=== PATIENT | male | born 1960 | race Caucasian/White ===

== ENCOUNTER 2016-11-18 19:06 | Inpatient (IN) | payer MEDICARE, OTHER ==
[~2016-11-18] VITALS: Ht 172.7 cm; Wt 80.4 kg
[~2016-11-18 19:06] MED LIST: ACET-1757 PO; ACET325T14 PO; ACID1TAB3 PO; ALBU2.5V NEB; ASPI-496 PO; ASPI-515; ASPI-515 PO; ATOR20TA; ATOR20TA PO; BACL-19 PO; BISA10SU2 PR; CHLO25TA4 PO; DOCU50LI24 PO; ESOM40VI IVF; HYDR-3138 PO; IPRA3AMP NPPB; LACT20SO2 NG; LISI20TA; MAGN400T7 PO; METR500T PO; MORP5SYR IV; MULT-658 PO; OMEP40CA3 PO; ONDA4SOL2 IV; PANT40GR PEG; RISP0.253 PO; SULF200O NG; TEMA15CA6 PO; [UNRECOGNIZED DRUG - CODE] IV; [UNRECOGNIZED DRUG - OTHER] OP; [UNRECOGNIZED DRUG - OTHER] PO; erythromycin; erythromycin OP
[2016-11-18] MEDS ORDERED: SODIUM CHLORIDE FLUSH 10ML SYR IVF ONE (19:30)
[2016-11-18] MEDS ORDERED: SODIUM CHLORIDE 0.9% 1,000ML IVBOLUS ONE (19:30)
[2016-11-18 20:08] LABS: BLOOD UREA NITROGEN 18 mg/dL (7-18)
[2016-11-18 20:12] LABS: ASPARTATE AMINO TRANSFERASE 15 U/L (15-37)
[2016-11-18] MEDS ORDERED: ASPI81TA50 PO (20:32)
[2016-11-18 20:38] LABS: DAU SCREEN DISCLAIMER
[2016-11-18] MEDS ORDERED: SODIUM CHLORIDE FLUSH 10ML SYR IVF PRN (21:00)
[2016-11-18] MEDS ORDERED: DOCUSATE 100 MG CAPSULE PO PRN (22:00)
[2016-11-18] MEDS ORDERED: BISACODYL 10 MG SUPP PR PRN (22:00)
[2016-11-18] MEDS ORDERED: LABETALOL 5MG/ML, 20ML IV PRN (22:00)
[2016-11-18] MEDS ORDERED: POLYETHYLENE GLYCOL 17 GM PACKET PO PRN (22:00)
[2016-11-18] MEDS ORDERED: ONDANSETRON 2MG/ML, 2ML IVP PRN (22:00)
[2016-11-18] MEDS ORDERED: ENALAPRILAT 1.25 MG/ML, 2ML IVPush PRN (22:00)
[2016-11-19 03:12] VITALS: BP 144/89
[2016-11-19 03:43] VITALS: BP 143/80
[2016-11-19 07:45] VITALS: BP 142/92
[2016-11-19 08:34] LABS: HEMOGLOBIN 19.2 g/dL (13.7-18.0)
[2016-11-19 08:44] LABS: ASPARTATE AMINO TRANSFERASE 13 U/L (15-37); BLOOD UREA NITROGEN 15 mg/dL (7-18)
[2016-11-19] MEDS: ACETAMINOPHEN 325 MG TABLET PO PRN ×2 (08:53→13:18)
[2016-11-19 12:49] VITALS: BP 142/94
[2016-11-19] MEDS ORDERED: OXYcodone IR 5MG TABLET PO PRN (16:30)
[2016-11-19] MEDS: ERYTHROMYCIN OPHTH 0.5%, 1GM RIGHTEYE SCH ×2 (16:31→20:56)
[2016-11-19 20:00] VITALS: BP 145/91
[2016-11-19] MEDS: ATORVASTATIN 20 MG TABLET PO SCH (20:52)
[2016-11-19] MEDS: LEVETIRACETAM 500 MG TABLET PO SCH (20:52)
[2016-11-20 01:51] VITALS: BP 142/92
[2016-11-20] MEDS: ERYTHROMYCIN OPHTH 0.5%, 1GM RIGHTEYE SCH ×4 (06:00→21:32)
[2016-11-20 06:58] VITALS: BP 114/71
[2016-11-20] MEDS: LEVETIRACETAM 500 MG TABLET PO SCH (09:00)
[2016-11-20] MEDS: SODIUM CHLORIDE 0.9% 1,000 ML IV SCH (11:00)
[2016-11-20 13:33] VITALS: BP 118/82
[2016-11-20] MEDS: ACETAMINOPHEN 325 MG TABLET PO PRN (14:54)
[2016-11-20 19:09] VITALS: BP 119/73
[2016-11-20] MEDS: ATORVASTATIN 20 MG TABLET PO SCH (21:32)
[2016-11-21] MEDS: SODIUM CHLORIDE 0.9% 1,000 ML IV SCH ×2 (03:01→13:31)
[2016-11-21 03:41] VITALS: BP 140/80
[2016-11-21] MEDS: ERYTHROMYCIN OPHTH 0.5%, 1GM RIGHTEYE SCH ×4 (06:00→22:21)
[2016-11-21 06:35] LABS: ASPARTATE AMINO TRANSFERASE 11 U/L (15-37); BLOOD UREA NITROGEN 21 mg/dL (7-18)
[2016-11-21 06:38] LABS: HEMOGLOBIN 18.8 g/dL (13.7-18.0)
[2016-11-21 07:10] VITALS: BP 95/65
[2016-11-21] MEDS: ACETAMINOPHEN 325 MG TABLET PO PRN (14:55)
[2016-11-21 15:20] VITALS: BP 115/76
[2016-11-21 18:54] VITALS: BP 119/75
[2016-11-21] MEDS: ATORVASTATIN 20 MG TABLET PO SCH (22:20)
[2016-11-22] MEDS: SODIUM CHLORIDE 0.9% 1,000 ML IV SCH (02:42)
[2016-11-22 02:47] VITALS: BP 121/70
[2016-11-22] MEDS: ERYTHROMYCIN OPHTH 0.5%, 1GM RIGHTEYE SCH ×2 (06:00→10:13)
[2016-11-22 07:33] VITALS: BP 122/85
[2016-11-22 13:30] VITALS: BP 116/76
== END 2016-11-22 17:40 | disposition home or self-care (01) | DRG 64 ==
LOC: ED 21:12 → EDIP 21:15 → 4WST 22:42
PROVIDERS: ADMIT Internal Medicine; ATTEND Internal Medicine
PROC: 0T9B70Z Drainage of Bladder with Drainage Device, Via Natural or Artificial Opening (ICD-10-PCS; principal; 2016-11-18)
DX: I62.00 Nontraumatic subdural hemorrhage, unspecified (principal); E43 Unspecified severe protein-calorie malnutrition; G91.9 Hydrocephalus, unspecified; R47.01 Aphasia; R27.0 Ataxia, unspecified; H91.93 Unspecified hearing loss, bilateral; J40 Bronchitis, not specified as acute or chronic; E78.5 Hyperlipidemia, unspecified; R13.10 Dysphagia, unspecified; D75.1 Secondary polycythemia; R47.02 Dysphasia; W18.30XA Fall on same level, unspecified, initial encounter; Z66 Do not resuscitate; R53.81 Other malaise; H91.91 Unspecified hearing loss, right ear; H54.11 Blindness, right eye, low vision left eye; Z96.89 Presence of other specified functional implants; F07.81 Postconcussional syndrome; I11.9 Hypertensive heart disease without heart failure; K80.20 Calculus of gallbladder without cholecystitis without obstruction; Z86.73 Personal history of transient ischemic attack (TIA), and cerebral infarction without residual deficits; Z98.2 Presence of cerebrospinal fluid drainage device; Q85.01 Neurofibromatosis, type 1; Z86.19 Personal history of other infectious and parasitic diseases; Z87.01 Personal history of pneumonia (recurrent); Z93.0 Tracheostomy status; Z87.891 Personal history of nicotine dependence; Z93.1 Gastrostomy status; Z91.81 History of falling; Z68.27 Body mass index [BMI] 27.0-27.9, adult
CPT/HCPCS: 36415; 70450; 71010; 71250; 76700; 80047; 80053; 80307; 81003; 83735; 84100; 84145; 85025; 85610; 85730; 93005; 99285; 92523-GN; J7030

== ENCOUNTER 2016-12-12 11:13 | Inpatient (IN) | payer MEDICARE ==
[~2016-12-12] VITALS: Ht 172.7 cm; Wt 70.6 kg
[~2016-12-12 11:13] MED LIST changes: +ASPI81TA50 PO; +LACT20SO13 NG; -LACT20SO2 NG
[2016-12-12] MEDS ORDERED: ONDANSETRON 2MG/ML, 2ML IVPush ONE ×2 (13:00→16:00)
[2016-12-12] MEDS ORDERED: SODIUM CHLORIDE FLUSH 10ML SYR IVF ONE (13:00)
[2016-12-12] MEDS ORDERED: SODIUM CHLORIDE 0.9% 1,000ML IVBOLUS ONE ×2 (13:00→15:30)
[2016-12-12] MEDS ORDERED: ONDANSETRON 2MG/ML, 2ML ONE ×2 (13:17→16:17)
[2016-12-12 13:23] LABS: ASPARTATE AMINO TRANSFERASE 13 U/L (15-37); BLOOD UREA NITROGEN 37 mg/dL (7-18)
[2016-12-12 14:38] LABS: BLOOD UREA NITROGEN 36 mg/dL (7-18)
[2016-12-12 14:43] LABS: ASPARTATE AMINO TRANSFERASE 13 U/L (15-37)
[2016-12-12] MEDS ORDERED: ACETAMINOPHEN 325 MG TABLET PO PRN (18:00)
[2016-12-12] MEDS ORDERED: ONDANSETRON 2MG/ML, 2ML IVP PRN (18:00)
[2016-12-12] MEDS ORDERED: HYDROcodone/APAP 5/325 TABLET PO PRN (18:00)
[2016-12-12] MEDS ORDERED: PROMETHAZINE 25 MG/ML, 1ML IM PRN (18:00)
[2016-12-12 21:24] VITALS: BP 142/95
[2016-12-12 22:20] VITALS: BP 124/76
[2016-12-12] MEDS: SODIUM CHLORIDE 0.9% 1,000 ML IV SCH (23:00)
[2016-12-13 01:41] VITALS: BP 126/99
[2016-12-13] MEDS: SODIUM CHLORIDE 0.9% 1,000 ML IV SCH ×3 (05:29→21:37)
[2016-12-13 06:41] VITALS: BP 116/80
[2016-12-13 06:49] LABS: ASPARTATE AMINO TRANSFERASE 12 U/L (15-37); BLOOD UREA NITROGEN 48 mg/dL (7-18)
[2016-12-13 13:18] VITALS: BP 133/84
[2016-12-13 19:43] VITALS: BP 117/74
[2016-12-14] VITALS (12 sets, daily range): BP systolic 111–132; BP diastolic 69–86
[2016-12-14] MEDS: SODIUM CHLORIDE 0.9% 1,000 ML IV SCH ×3 (03:51→19:54)
[2016-12-14 05:49] LABS: BLOOD UREA NITROGEN 37 mg/dL (7-18)
[2016-12-14 05:52] LABS: ASPARTATE AMINO TRANSFERASE 10 U/L (15-37)
[2016-12-14] MEDS ORDERED: MIDAZOLAM 1 MG/ML, 2ML ONE ×2 (08:35→08:36)
[2016-12-14] MEDS ORDERED: KETAMINE 10 MG/ML, 20ML ONE (08:35)
[2016-12-14] MEDS ORDERED: FENTANYL PF 100 MCG/2ML IV PRN (10:30)
[2016-12-14] MEDS ORDERED: ONDANSETRON 2MG/ML, 2ML IVPush PRN (10:30)
[2016-12-14] MEDS ORDERED: OXYcodone 5 MG/5 ML ORAL.SOL UDC PO PRN (10:30)
[2016-12-14] MEDS ORDERED: ALBUTEROL/IPRATROPIUM 2.5MG/0.5MG, 3 ML NPPB PRN (10:30)
[2016-12-14] MEDS ORDERED: hydrALAzine 20 MG/ML, 1ML IV PRN (10:30)
[2016-12-14] MEDS ORDERED: HYDROmorphone 1 MG/ML, 1ML IV PRN (10:30)
[2016-12-14] MEDS ORDERED: ACETAMINOPHEN 325 MG TABLET PO PRN (10:30)
[2016-12-14] MEDS ORDERED: ALBUTEROL SULFATE 2.5 MG/3 ML NPPB PRN (10:30)
[2016-12-14] MEDS ORDERED: LABETALOL 5MG/ML, 20ML IV PRN (10:30)
[2016-12-14] MEDS ORDERED: ACETAMINOPHEN 650 MG SUPP PR PRN (23:00)
[2016-12-15 01:45] VITALS: BP 133/78
[2016-12-15] MEDS: SODIUM CHLORIDE 0.9% 1,000 ML IV SCH ×3 (02:21→17:13)
[2016-12-15 06:20] LABS: BLOOD UREA NITROGEN 26 mg/dL (7-18)
[2016-12-15 07:39] VITALS: BP 129/75
[2016-12-15] MEDS: MORPHINE SULFATE 4 MG/ML, 1ML IVPush PRN (11:38)
[2016-12-15 13:44] VITALS: BP 144/89
[2016-12-15 20:34] VITALS: BP 135/80
[2016-12-16] MEDS: SODIUM CHLORIDE 0.9% 1,000 ML IV SCH ×2 (00:49→10:52)
[2016-12-16 01:55] VITALS: BP 138/73
[2016-12-16 06:36] VITALS: BP 122/76
[2016-12-16 07:14] LABS: BLOOD UREA NITROGEN 20 mg/dL (7-18)
[2016-12-16] MEDS: MORPHINE SULFATE 4 MG/ML, 1ML IVPush PRN (11:18)
[2016-12-16 14:16] VITALS: BP 128/75
[2016-12-16] MEDS ORDERED: TPN PER PHARMACY MC PRN (16:00)
[2016-12-16] MEDS ORDERED: SODIUM CHLORIDE 0.9% 1,000 ML IV SCH ×2 (17:00)
[2016-12-16] MEDS ORDERED: [UNRECOGNIZED DRUG - OTHER] IV SCH (17:00)
[2016-12-16] MEDS ORDERED: DEXTROSE 70% IV SCH ×2 (17:00)
[2016-12-16] MEDS ORDERED: DEXTROSE 10% 500 ML IV PRN (17:00)
[2016-12-16] MEDS ORDERED: AMINO ACID 10% IV SCH ×2 (17:00)
[2016-12-16] MEDS ORDERED: [UNRECOGNIZED DRUG - OTHER] IV SCH (17:00)
[2016-12-16] MEDS ORDERED: FAT EMULSIONS IV SCH ×2 (17:00)
[2016-12-16] MEDS ORDERED: DEXTROSE 50%, 50ML SYRINGE IVPush PRN (17:00)
[2016-12-16] MEDS: FILTER, DISP 1.2 MICRON FOR TPN/PVN IV PRN (18:24)
[2016-12-16 20:00] VITALS: BP 135/78
[2016-12-16] MEDS: INSULIN REGULAR LOW DOSE Q6H X 48HRS SQ-INSULIN SCH (23:00)
[2016-12-17 00:38] VITALS: BP 134/86
[2016-12-17] MEDS: INSULIN REGULAR LOW DOSE Q6H X 48HRS SQ-INSULIN SCH ×4 (05:00→22:57)
[2016-12-17 05:55] LABS: ASPARTATE AMINO TRANSFERASE 13 U/L (15-37); BLOOD UREA NITROGEN 17 mg/dL (7-18)
[2016-12-17 06:36] VITALS: BP 130/83
[2016-12-17] MEDS ORDERED: SODIUM CHLORIDE 0.9% 1,000 ML IV SCH (08:26)
[2016-12-17] MEDS ORDERED: MAGNESIUM SULFATE PMX 2GM/50ML 50 ML IVPB ONE (08:30)
[2016-12-17] MEDS ORDERED: POTASSIUM PHOSPHATE 22 MEQ in SODIUM CHLORIDE 0.9% 500 ML IV ONE (09:00)
[2016-12-17 12:45] VITALS: BP 125/81
[2016-12-17] MEDS ORDERED: FAT EMULSIONS IV SCH (17:00)
[2016-12-17] MEDS ORDERED: DEXTROSE 70% IV SCH (17:00)
[2016-12-17] MEDS ORDERED: AMINO ACID 10% IV SCH (17:00)
[2016-12-17] MEDS ORDERED: [UNRECOGNIZED DRUG - OTHER] IV SCH (17:00)
[2016-12-17] MEDS: SODIUM CHLORIDE 0.9% 1,000 ML IV SCH (18:16)
[2016-12-17 20:00] VITALS: BP 123/76
[2016-12-17] MEDS ORDERED: SODIUM PHOSPHATE 20 MMOL in SODIUM CHLORIDE 0.9% 500 ML IV ONE (20:00)
[2016-12-18 02:00] VITALS: BP 130/87
[2016-12-18 04:49] LABS: BLOOD UREA NITROGEN 13 mg/dL (7-18)
[2016-12-18] MEDS: INSULIN REGULAR LOW DOSE Q6H X 48HRS SQ-INSULIN SCH ×3 (05:00→17:00)
[2016-12-18 09:00] VITALS: BP 140/82
[2016-12-18] MEDS: SODIUM CHLORIDE 0.9% 1,000 ML IV SCH (12:15)
[2016-12-18 14:30] VITALS: BP 131/88
[2016-12-18] MEDS ORDERED: FAT EMULSIONS IV SCH (17:00)
[2016-12-18] MEDS ORDERED: [UNRECOGNIZED DRUG - OTHER] IV SCH (17:00)
[2016-12-18] MEDS ORDERED: AMINO ACID 10% IV SCH (17:00)
[2016-12-18] MEDS ORDERED: DEXTROSE 70% IV SCH (17:00)
[2016-12-18] MEDS: MORPHINE SULFATE 4 MG/ML, 1ML IVPush PRN ×2 (17:06→22:39)
[2016-12-18] MEDS: FILTER, DISP 1.2 MICRON FOR TPN/PVN IV PRN (17:07)
[2016-12-18 20:00] VITALS: BP 128/84
[2016-12-19] MEDS: SODIUM CHLORIDE 0.9% 1,000 ML IV SCH ×2 (01:57→17:05)
[2016-12-19 03:00] VITALS: BP 115/74
[2016-12-19] MEDS: INSULIN REGULAR LOW DOSE QDAY SQ-INSULIN SCH (05:00)
[2016-12-19 05:15] LABS: BLOOD UREA NITROGEN 14 mg/dL (7-18)
[2016-12-19 05:20] LABS: ASPARTATE AMINO TRANSFERASE 14 U/L (15-37)
[2016-12-19 07:26] VITALS: BP 114/72
[2016-12-19 12:30] VITALS: BP 120/76
[2016-12-19] MEDS ORDERED: [UNRECOGNIZED DRUG - OTHER] IV SCH (17:00)
[2016-12-19] MEDS ORDERED: FAT EMULSIONS IV SCH (17:00)
[2016-12-19] MEDS ORDERED: DEXTROSE 70% IV SCH (17:00)
[2016-12-19] MEDS ORDERED: AMINO ACID 10% IV SCH (17:00)
[2016-12-19] MEDS: FILTER, DISP 1.2 MICRON FOR TPN/PVN IV PRN (17:04)
[2016-12-19 20:59] VITALS: BP 118/77
[2016-12-20 02:55] VITALS: BP 94/61
[2016-12-20 04:50] VITALS: BP 102/63
[2016-12-20] MEDS: INSULIN REGULAR LOW DOSE QDAY SQ-INSULIN SCH (05:37)
[2016-12-20 06:13] LABS: BLOOD UREA NITROGEN 17 mg/dL (7-18)
[2016-12-20 06:45] VITALS: BP 101/66
[2016-12-20] MEDS: SODIUM CHLORIDE 0.9% 1,000 ML IV SCH (08:51)
[2016-12-20] MEDS: MORPHINE SULFATE 4 MG/ML, 1ML IVPush PRN (13:26)
[2016-12-20 13:52] VITALS: BP 122/80
[2016-12-20] MEDS ORDERED: [UNRECOGNIZED DRUG - OTHER] IV SCH ×2 (17:00)
[2016-12-20] MEDS ORDERED: DEXTROSE 70% IV SCH ×2 (17:00)
[2016-12-20] MEDS ORDERED: FAT EMULSIONS IV SCH ×2 (17:00)
[2016-12-20] MEDS ORDERED: AMINO ACID 10% IV SCH ×2 (17:00)
[2016-12-20] MEDS: FILTER, DISP 1.2 MICRON FOR TPN/PVN IV PRN (17:29)
[2016-12-20 18:28] VITALS: BP 125/74
[2016-12-21] MEDS: SODIUM CHLORIDE 0.9% 1,000 ML IV SCH (00:15)
[2016-12-21 01:16] VITALS: BP 99/59
[2016-12-21] MEDS: INSULIN REGULAR LOW DOSE QDAY SQ-INSULIN SCH (05:00)
[2016-12-21 06:31] LABS: ASPARTATE AMINO TRANSFERASE 8 U/L (15-37); BLOOD UREA NITROGEN 19 mg/dL (7-18)
[2016-12-21 08:07] VITALS: BP 121/75
[2016-12-21 15:57] VITALS: BP 109/73
[2016-12-21] MEDS ORDERED: [UNRECOGNIZED DRUG - OTHER] IV SCH (17:00)
[2016-12-21] MEDS ORDERED: FAT EMULSIONS IV SCH (17:00)
[2016-12-21] MEDS ORDERED: DEXTROSE 70% IV SCH (17:00)
[2016-12-21] MEDS ORDERED: AMINO ACID 10% IV SCH (17:00)
[2016-12-21] MEDS: FILTER, DISP 1.2 MICRON FOR TPN/PVN IV PRN (17:23)
[2016-12-21 18:57] VITALS: BP 129/80
[2016-12-22 01:50] VITALS: BP 96/63
[2016-12-22] MEDS: INSULIN REGULAR LOW DOSE QDAY SQ-INSULIN SCH (05:23)
[2016-12-22 08:00] VITALS: BP 146/92
[2016-12-22] MEDS: SODIUM CHLORIDE 0.9% 1,000 ML IV SCH (08:25)
[2016-12-22 08:40] VITALS: BP 132/82
[2016-12-22 13:30] VITALS: BP 124/76
[2016-12-22] MEDS ORDERED: DEXTROSE 70% IV SCH (17:00)
[2016-12-22] MEDS ORDERED: [UNRECOGNIZED DRUG - OTHER] IV SCH (17:00)
[2016-12-22] MEDS ORDERED: AMINO ACID 10% IV SCH (17:00)
[2016-12-22] MEDS ORDERED: FAT EMULSIONS IV SCH (17:00)
[2016-12-22 19:00] VITALS: BP 112/78
[2016-12-22] MEDS: FILTER, DISP 1.2 MICRON FOR TPN/PVN IV PRN (19:25)
[2016-12-23] MEDS: SODIUM CHLORIDE 0.9% 1,000 ML IV SCH ×2 (00:09→18:23)
[2016-12-23 02:15] VITALS: BP 132/72
[2016-12-23] MEDS: INSULIN REGULAR LOW DOSE QDAY SQ-INSULIN SCH (05:31)
[2016-12-23] MEDS ORDERED: CATHFLO-ALTEPLASE 2 MG/2 ML CATHFLUSH ONE (06:30)
[2016-12-23 06:58] LABS: BLOOD UREA NITROGEN 19 mg/dL (7-18)
[2016-12-23 08:55] VITALS: BP 104/68
[2016-12-23] MEDS ORDERED: FAT EMULSIONS IV SCH ×2 (11:30→17:00)
[2016-12-23] MEDS ORDERED: DEXTROSE 70% IV SCH ×2 (11:30→17:00)
[2016-12-23] MEDS ORDERED: AMINO ACID 10% IV SCH ×2 (11:30→17:00)
[2016-12-23] MEDS ORDERED: [UNRECOGNIZED DRUG - OTHER] IV SCH (11:30)
[2016-12-23 14:30] VITALS: BP 129/79
[2016-12-23] MEDS ORDERED: [UNRECOGNIZED DRUG - OTHER] IV SCH (17:00)
[2016-12-23 18:47] VITALS: BP 119/81
[2016-12-23] MEDS: FILTER, DISP 1.2 MICRON FOR TPN/PVN IV PRN (19:28)
[2016-12-24 01:19] VITALS: BP 117/79
[2016-12-24 08:22] VITALS: BP 115/70
[2016-12-24] MEDS: INSULIN REGULAR LOW DOSE QDAY SQ-INSULIN SCH (09:00)
[2016-12-24] MEDS: SODIUM CHLORIDE 0.9% 1,000 ML IV SCH (10:22)
[2016-12-24 13:40] VITALS: BP 112/79
[2016-12-24] MEDS ORDERED: AMINO ACID 10% IV SCH (17:00)
[2016-12-24] MEDS ORDERED: FAT EMULSIONS IV SCH (17:00)
[2016-12-24] MEDS ORDERED: [UNRECOGNIZED DRUG - OTHER] IV SCH (17:00)
[2016-12-24] MEDS ORDERED: DEXTROSE 70% IV SCH (17:00)
[2016-12-24 19:09] VITALS: BP 133/83
[2016-12-24] MEDS: FILTER, DISP 1.2 MICRON FOR TPN/PVN IV PRN (20:10)
[2016-12-25 05:05] VITALS: BP 110/66
[2016-12-25 05:36] LABS: BLOOD UREA NITROGEN 18 mg/dL (7-18)
[2016-12-25 07:07] VITALS: BP 112/69
[2016-12-25] MEDS: INSULIN REGULAR LOW DOSE QDAY SQ-INSULIN SCH (09:00)
[2016-12-25] MEDS ORDERED: CATHFLO-ALTEPLASE 2 MG/2 ML CATHFLUSH ONE ×2 (11:30→14:30)
[2016-12-25 13:19] VITALS: BP 127/83
[2016-12-25] MEDS: FILTER, DISP 1.2 MICRON FOR TPN/PVN IV PRN (16:59)
[2016-12-25] MEDS ORDERED: [UNRECOGNIZED DRUG - OTHER] IV SCH (17:00)
[2016-12-25] MEDS ORDERED: DEXTROSE 70% IV SCH (17:00)
[2016-12-25] MEDS ORDERED: AMINO ACID 10% IV SCH (17:00)
[2016-12-25] MEDS ORDERED: FAT EMULSIONS IV SCH (17:00)
[2016-12-25] MEDS: SODIUM CHLORIDE 0.9% 1,000 ML IV SCH (17:01)
[2016-12-25 19:16] VITALS: BP 129/79
[2016-12-26 01:18] VITALS: BP 134/81
[2016-12-26 05:30] LABS: ASPARTATE AMINO TRANSFERASE 11 U/L (15-37); BLOOD UREA NITROGEN 14 mg/dL (7-18)
[2016-12-26 08:39] VITALS: BP 118/73
[2016-12-26] MEDS: SODIUM CHLORIDE 0.9% 1,000 ML IV SCH (08:45)
[2016-12-26] MEDS: INSULIN REGULAR LOW DOSE QDAY SQ-INSULIN SCH (08:53)
[2016-12-26 15:36] VITALS: BP 130/81
[2016-12-26] MEDS ORDERED: DEXTROSE 70% IV SCH (17:00)
[2016-12-26] MEDS ORDERED: FAT EMULSIONS IV SCH (17:00)
[2016-12-26] MEDS ORDERED: AMINO ACID 10% IV SCH (17:00)
[2016-12-26] MEDS ORDERED: [UNRECOGNIZED DRUG - OTHER] IV SCH (17:00)
[2016-12-26] MEDS: FILTER, DISP 1.2 MICRON FOR TPN/PVN IV PRN (17:55)
[2016-12-26 18:06] LABS: DIFF TOTAL CELLS COUNTED 100 CELL DIFF
[2016-12-26 18:09] LABS: ANISOCYTOSIS 1+; MICROCYTOSIS 1+; VERIFY COUNTS? YES
[2016-12-26 19:00] VITALS: BP 111/74
[2016-12-26] MEDS: TEMAZEPAM 15 MG CAPSULE PO PRN (23:32)
[2016-12-27] MEDS: SODIUM CHLORIDE 0.9% 1,000 ML IV SCH (03:38)
[2016-12-27 05:46] VITALS: BP 92/63
[2016-12-27] MEDS: INSULIN REGULAR LOW DOSE QDAY SQ-INSULIN SCH (08:04)
[2016-12-27 09:29] VITALS: BP 114/71
[2016-12-27 14:41] VITALS: BP 117/76
[2016-12-27] MEDS ORDERED: DEXTROSE 70% IV SCH (17:00)
[2016-12-27] MEDS ORDERED: [UNRECOGNIZED DRUG - OTHER] IV SCH (17:00)
[2016-12-27] MEDS ORDERED: FAT EMULSIONS IV SCH (17:00)
[2016-12-27] MEDS ORDERED: AMINO ACID 10% IV SCH (17:00)
[2016-12-27 19:49] VITALS: BP 121/82
[2016-12-27] MEDS: TEMAZEPAM 15 MG CAPSULE PO PRN (22:00)
[2016-12-28 03:44] VITALS: BP 122/75
[2016-12-28 07:26] VITALS: BP 120/75
[2016-12-28 13:54] VITALS: BP 121/82
== END 2016-12-28 18:10 | disposition home health service (06) | DRG 380 ==
LOC: ED 16:40 → EDIP 16:41 → SUATTDRO 17:14 → ED 17:44 → 4EST 18:56 → 4WST 12-20 11:16 → 4EST 12-20 11:41 → 4WST 12-20 12:00
PROVIDERS: ADMIT Hospitalist; ATTEND Internal Medicine
PROC: 0DB98ZX Excision of Duodenum, Via Natural or Artificial Opening Endoscopic, Diagnostic (ICD-10-PCS; 2016-12-14)
PROC: 02HV33Z Insertion of Infusion Device into Superior Vena Cava, Percutaneous Approach (ICD-10-PCS; principal; 2016-12-16)
PROC: B548ZZA Ultrasonography of Superior Vena Cava, Guidance (ICD-10-PCS; 2016-12-16)
PROC: 3E0436Z Introduction of Nutritional Substance into Central Vein, Percutaneous Approach (ICD-10-PCS; 2016-12-16)
PROC: 0DB98ZX Excision of Duodenum, Via Natural or Artificial Opening Endoscopic, Diagnostic (ICD-10-PCS; 2016-12-24)
PROC: BD49ZZZ Ultrasonography of Duodenum (ICD-10-PCS; 2016-12-26)
PROC: 0T9B70Z Drainage of Bladder with Drainage Device, Via Natural or Artificial Opening (ICD-10-PCS; 2016-12-27)
DX: K31.1 Adult hypertrophic pyloric stenosis (principal); N17.0 Acute kidney failure with tubular necrosis; J96.20 Acute and chronic respiratory failure, unspecified whether with hypoxia or hypercapnia; I60.9 Nontraumatic subarachnoid hemorrhage, unspecified; C7A.8 Other malignant neuroendocrine tumors; E87.2 Acidosis; R65.10 Systemic inflammatory response syndrome (SIRS) of non-infectious origin without acute organ dysfunction; G91.9 Hydrocephalus, unspecified; R47.01 Aphasia; I69.351 Hemiplegia and hemiparesis following cerebral infarction affecting right dominant side; K22.10 Ulcer of esophagus without bleeding; E16.2 Hypoglycemia, unspecified; D75.1 Secondary polycythemia; E78.5 Hyperlipidemia, unspecified; E86.1 Hypovolemia; H54.0 Blindness, both eyes; H91.93 Unspecified hearing loss, bilateral; I10 Essential (primary) hypertension; J44.9 Chronic obstructive pulmonary disease, unspecified; Z66 Do not resuscitate; R13.10 Dysphagia, unspecified; K20.9 Esophagitis, unspecified; K80.20 Calculus of gallbladder without cholecystitis without obstruction; X58.XXXA Exposure to other specified factors, initial encounter; R00.0 Tachycardia, unspecified; Q85.01 Neurofibromatosis, type 1; Z86.19 Personal history of other infectious and parasitic diseases; Z87.891 Personal history of nicotine dependence; Z93.0 Tracheostomy status; Z98.2 Presence of cerebrospinal fluid drainage device; Z99.81 Dependence on supplemental oxygen; Z88.8 Allergy status to other drugs, medicaments and biological substances; Y93.89 Activity, other specified; Y92.89 Other specified places as the place of occurrence of the external cause; Y99.8 Other external cause status; E86.0 Dehydration
CPT/HCPCS: 36415; 36569; 70450; 71010; 74000; 74176; 76937; 77001; 80048; 80053; 81001; 81003; 82140; 82607; 82962; 83605; 83690; 83735; 84100; 84134; 84145; 84443; 84478; 85025; 85610; 85730; 87040; 87324; 88305; 88341; 88342; 88360; 93005; 96361; 96374; 96376; J0610; J1644; J2250; J2405; J2704; J2997; J3475; J3480; 92523-GN; C1751; G0461; J1720; J3420; J7030; J7040

== ENCOUNTER → 2017-01-09 | Outpatient (CLI) | payer MEDICARE ==
[~2017-01-09] MED LIST changes: +OMNIPAQUE 350 MG/ML, 100ML BOTTLE ONE
== END | disposition home or self-care (01) ==
LOC: RAD 11:37
PROVIDERS: ATTEND Surgery
DX: D13.2 Benign neoplasm of duodenum (principal); K82.8 Other specified diseases of gallbladder; R59.0 Localized enlarged lymph nodes; I70.0 Atherosclerosis of aorta; K86.89 Other specified diseases of pancreas; K31.5 Obstruction of duodenum
CPT/HCPCS: 74178; Q9967

== ENCOUNTER → 2017-07-06 | Outpatient (CLI) | payer MEDICARE ==
[~2017-07-06] MED LIST changes: -HYDR-3138 PO; +HYDR-3237 PO; -OMNIPAQUE 350 MG/ML, 100ML BOTTLE ONE
== END | disposition home or self-care (01) ==
LOC: ROC 09:44
PROVIDERS: ATTEND Radiology Radiation Oncology
DX: C7A.8 Other malignant neuroendocrine tumors (principal)
CPT/HCPCS: 99213; G0463

== ENCOUNTER → 2017-08-07 | Outpatient (CLI) | payer MEDICARE ==
[~2017-08-07] MED LIST changes: +OMNIPAQUE 350 MG/ML, 100ML BOTTLE ONE
== END | disposition home or self-care (01) ==
LOC: CFH 09:41
PROVIDERS: ATTEND Radiology Radiation Oncology
DX: J43.2 Centrilobular emphysema (principal); R59.0 Localized enlarged lymph nodes; N40.0 Benign prostatic hyperplasia without lower urinary tract symptoms; I70.0 Atherosclerosis of aorta; M48.56XA Collapsed vertebra, not elsewhere classified, lumbar region, initial encounter for fracture; K40.90 Unilateral inguinal hernia, without obstruction or gangrene, not specified as recurrent; K57.30 Diverticulosis of large intestine without perforation or abscess without bleeding; K86.89 Other specified diseases of pancreas; H74.8X3 Other specified disorders of middle ear and mastoid, bilateral; G93.89 Other specified disorders of brain; C17.0 Malignant neoplasm of duodenum; Z98.890 Other specified postprocedural states
CPT/HCPCS: 70450; 71260; 74177; Q9967

== ENCOUNTER → 2017-08-14 | Outpatient (CLI) | payer MEDICARE ==
[~2017-08-14] MED LIST changes: -OMNIPAQUE 350 MG/ML, 100ML BOTTLE ONE
== END | disposition home or self-care (01) ==
LOC: ROC 08:17
PROVIDERS: ATTEND Radiology Radiation Oncology
DX: Z08 Encounter for follow-up examination after completed treatment for malignant neoplasm (principal); C7A.8 Other malignant neuroendocrine tumors; H54.61 Unqualified visual loss, right eye, normal vision left eye; Z87.891 Personal history of nicotine dependence; Z86.73 Personal history of transient ischemic attack (TIA), and cerebral infarction without residual deficits
CPT/HCPCS: 99213; G0463

== ENCOUNTER 2017-08-25 09:37 | Day surgery (SDC) | payer MEDICARE ==
[~2017-08-25] VITALS: Ht 175.3 cm; Wt 75.9 kg
[~2017-08-25 09:37] MED LIST changes: +EPINEPHRINE SYRINGE 0.1 MG/ML, 10ML ONE
[2017-08-25 11:18] VITALS: BP 138/100
[2017-08-25] MEDS ORDERED: LACTATED RINGERS 1,000 ML IV SCH (11:21)
[2017-08-25] MEDS ORDERED: [UNRECOGNIZED DRUG - OTHER] PO (11:22)
[2017-08-25] MEDS ORDERED: MULTIVITAMIN PO (11:22)
[2017-08-25] MEDS ORDERED: FENTANYL PF 100 MCG/2ML ONE (12:15)
[2017-08-25] MEDS ORDERED: MIDAZOLAM 1 MG/ML, 2ML ONE (12:15)
[2017-08-25] MEDS ORDERED: HYDROcodone/APAP 7.5-325MG/15ML UDC PO PRN (13:00)
[2017-08-25] MEDS ORDERED: OXYcodone 5 MG/5 ML ORAL.SOL UDC PO PRN (13:00)
[2017-08-25] MEDS ORDERED: PROMETHAZINE 25 MG/ML, 1ML IV PRN (13:00)
[2017-08-25] MEDS ORDERED: MIDAZOLAM 1 MG/ML, 2ML IV PRN (13:00)
[2017-08-25] MEDS ORDERED: ONDANSETRON 2MG/ML, 2ML IVPush PRN (13:00)
[2017-08-25] MEDS ORDERED: hydrALAzine 20 MG/ML, 1ML IV PRN (13:00)
[2017-08-25] MEDS ORDERED: ALBUTEROL/IPRATROPIUM 2.5MG/0.5MG, 3 ML NPPB PRN (13:00)
[2017-08-25] MEDS ORDERED: ACETAMINOPHEN 325 MG TABLET PO PRN (13:00)
[2017-08-25] MEDS ORDERED: HYDROmorphone 1 MG/ML, 1ML IV PRN (13:00)
[2017-08-25] MEDS ORDERED: DIAZEPAM 5 MG/ML, 10ML VIAL IVPush PRN (13:00)
[2017-08-25] MEDS ORDERED: ALBUTEROL SULFATE 2.5 MG/3 ML NPPB PRN (13:00)
[2017-08-25] MEDS ORDERED: LABETALOL 5MG/ML, 20ML IV PRN (13:00)
[2017-08-25] MEDS ORDERED: METOPROLOL 1 MG/ML, 5ML IV PRN (13:00)
[2017-08-25] MEDS ORDERED: MEPERIDINE/PF 25MG/0.5ML IVPush PRN (13:00)
[2017-08-25] MEDS ORDERED: FENTANYL PF 100 MCG/2ML IV PRN (13:00)
[2017-08-25] MEDS ORDERED: EPHEDRINE 50 MG/ML, 1ML IVPush PRN (13:00)
[2017-08-25] MEDS ORDERED: DEXAMETHASONE 4 MG/ML, 1ML ONE (13:41)
[2017-08-25] MEDS ORDERED: PROPOFOL 10 MG/ML, 20ML ONE (13:41)
[2017-08-25] MEDS ORDERED: SUCCINYLCHOLINE 20 MG/ML, 10ML ONE (13:41)
[2017-08-25] MEDS ORDERED: ROCURONIUM 10 MG/ML,10ML ONE (13:41)
[2017-08-25] MEDS ORDERED: GLYCOPYRROLATE 0.2MG/1ML, 5ML ONE (13:41)
[2017-08-25] MEDS ORDERED: NEOSTIGMINE 1 MG/ML, 10ML ONE (13:41)
[2017-08-25] MEDS ORDERED: ONDANSETRON 2MG/ML, 2ML ONE (13:41)
[2017-08-25] MEDS ORDERED: ALBUTEROL SULFATE 2.5 MG/3 ML ONE (14:23)
== END 2017-08-25 16:30 ==
LOC: OR 09:37 → OUT 16:30
PROVIDERS: ATTEND Internal Medicine
DX: J98.4 Other disorders of lung (principal); J43.9 Emphysema, unspecified; Z88.8 Allergy status to other drugs, medicaments and biological substances
CPT/HCPCS: 31625; 31627; 31629; 71250; 88112; 88172; 88173; 88177; 88305; 93005; 94640; J0330; J1100; J2250; J2405; J2704; J2710; J3010; J7120; J3490

== ENCOUNTER 2018-06-12 22:56 | Inpatient (IN) | payer MEDICARE ==
[~2018-06-12] VITALS: Ht 172.7 cm; Wt 89.1 kg
[~2018-06-12 22:56] MED LIST changes: +CEFD300C37 PO; -EPINEPHRINE SYRINGE 0.1 MG/ML, 10ML ONE; +FLUT1BLS INH; +FURO20TA3 PO; -IPRA3AMP NPPB; +IPRA3AMP30 NPPB; +MULTIVITAMIN PO; +[UNRECOGNIZED DRUG - OTHER] PO
[2018-06-12] MEDS ORDERED: SODIUM CHLORIDE 0.9% 1,000ML IVBOLUS ONE (23:30)
[2018-06-12] MEDS ORDERED: PIPERACILLIN/TAZO/PMX 3.375GM 50 ML IVPB ONE (23:30)
[2018-06-13 00:01] LABS: MEAN CORPUSCULAR HGB CONC 31.7 g/dL (33.2-36.2); MEAN PLATELET VOLUME 9.5 fL (7.4-10.4); PLATELET COUNT 237 x10^3/uL (130-400); RED BLOOD COUNT 5.23 x10^6/uL (4.38-5.82); RED CELL DISTRIBUTION WIDTH 19.1 % (9.4-14.8)
[2018-06-13 00:13] LABS: ALANINE AMINOTRANSFERASE 14 U/L (12-78); ALBUMIN 3.1 g/dL (3.4-5.0); ANION GAP 7 mmol/L (5-15); CALCIUM 8.4 mg/dL (8.5-10.1); CHLORIDE 99 mmol/L (98-107); CREATININE 1.38 mg/dL (0.7-1.3)
[2018-06-13 00:18] LABS: ALKALINE PHOSPHATASE 89 U/L (45-117); BILIRUBIN,TOTAL 0.6 mg/dL (0.2-1.0); TOTAL PROTEIN 7.9 g/dL (6.4-8.2)
[2018-06-13 00:21] LABS: TROPONIN I 0.127 ng/mL (0.000-0.045)
[2018-06-13 00:29] LABS: MD YES
[2018-06-13] MEDS ORDERED: PIPERACILLIN/TAZO/PMX 3.375GM 50 ML ONE (00:29)
[2018-06-13 00:35] LABS: ANISOCYTOSIS 1+; BANDS%(MANUAL) 2 % (0-7); BASOS% (MANUAL) 1 % (0-1); EOS% (MANUAL) 3 % (1-7); LYMPH#(MANUAL) 1.01 x10^3/uL (1-3.4); LYMPHS% (MANUAL) 5 % (22-44); METAMYELOCYTES% (MANUAL) 1 % (0-1); MONOS% (MANUAL) 3 % (2-9); SEG#(MANUAL) 17.09 x10^3/uL (1.8-6.8); SEGS% (MANUAL) 85 % (42-75)
[2018-06-13 00:36] LABS: <PLATELET ESTIMATE> ADEQUATE; LARGE PLATELETS 1+; POLYCHROMASIA 1+
[2018-06-13] MEDS ORDERED: LORA-446 PO (00:53)
[2018-06-13] MEDS ORDERED: SODIUM CHLORIDE 0.9% 1,000 ML IV ONE (01:48)
[2018-06-13] MEDS ORDERED: ONDANSETRON 2MG/ML, 2ML IVPush PRN ×2 (02:00→03:30)
[2018-06-13] MEDS ORDERED: hydrALAzine 20 MG/ML, 1ML IVPush PRN (03:30)
[2018-06-13] MEDS ORDERED: DOCUSATE 100 MG CAPSULE PO PRN (03:30)
[2018-06-13] MEDS ORDERED: PROMETHAZINE 25 MG/ML, 1ML IM PRN (03:30)
[2018-06-13] MEDS ORDERED: BISACODYL 10 MG SUPP PR PRN (03:30)
[2018-06-13] MEDS ORDERED: ONDANSETRON ODT 4 MG PO PRN (03:30)
[2018-06-13] MEDS ORDERED: POLYETHYLENE GLYCOL 17 GM PACKET PO PRN (03:30)
[2018-06-13] MEDS ORDERED: LABETALOL 5MG/ML, 20ML IVPush PRN (03:30)
[2018-06-13] MEDS ORDERED: FUROSEMIDE 40 MG/4 ML IV ONE (03:30)
[2018-06-13] MEDS: CEFTRIAXONE PMX 1GM/50ML 50 ML IV SCH (05:24)
[2018-06-13] MEDS: ACETAMINOPHEN 325 MG TABLET PO PRN (05:24)
[2018-06-13] MEDS: HEPARIN 5,000 UNITS/ML, 1ML SQ SCH ×3 (05:24→19:40)
[2018-06-13] MEDS ORDERED: LORazepam 1MG TABLET PO PRN (05:30)
[2018-06-13 06:41] LABS: TROPONIN I 0.235 ng/mL (0.000-0.045)
[2018-06-13 06:47] LABS: FREE T4 (FREE THYROXINE) 1.05 ng/dL (0.76-1.46); THYROID STIMULATING HORMONE 3.51 mIU/L (0.358-3.740)
[2018-06-13 07:14] LABS: HEMOGLOBIN A1C 6.5 % (4.2-6.3)
[2018-06-13] MEDS ORDERED: FUROSEMIDE 20 MG TABLET PO SCH (08:00)
[2018-06-13] MEDS: FLUTICASONE/VILANTEROL 200-25MCG/INH INH SCH (09:00)
[2018-06-13] MEDS ORDERED: DOXYCYCLINE 100MG TABLET PO SCH (09:00)
[2018-06-13] MEDS: DOXYCYCLINE 100 MG in DEXTROSE 5% 250 ML IV SCH ×2 (10:22→21:29)
[2018-06-13] MEDS: FUROSEMIDE 20 MG/2 ML IV SCH ×2 (10:39→21:29)
[2018-06-13] MEDS: MULTIVITAMIN 1 TABLET PO SCH (11:10)
[2018-06-13 11:31] LABS: CULTURE INDICATED? NO; MICROSCOPIC NOT IND
[2018-06-13 11:34] LABS: TROPONIN I 0.213 ng/mL (0.000-0.045)
[2018-06-13] MEDS: LORazepam 0.5MG TABLET PO PRN (19:40)
[2018-06-13] MEDS ORDERED: QUETIAPINE 25MG TABLET PO PRN (20:00)
[2018-06-13] MEDS ORDERED: LORazepam 1MG TABLET PO SCH ×2 (21:00)
[2018-06-13] MEDS: morphine SULFATE 10 MG/ML, 1ML IVPush PRN (23:16)
[2018-06-14] MEDS: HEPARIN 5,000 UNITS/ML, 1ML SQ SCH ×3 (03:10→19:25)
[2018-06-14 04:20] VITALS: BP 130/80
[2018-06-14 04:34] LABS: ALBUMIN 2.8 g/dL (3.4-5.0); ANION GAP 5 mmol/L (5-15); CALCIUM 8.6 mg/dL (8.5-10.1); CHLORIDE 98 mmol/L (98-107)
[2018-06-14 04:38] LABS: ALANINE AMINOTRANSFERASE 15 U/L (12-78); ALKALINE PHOSPHATASE 77 U/L (45-117); BILIRUBIN,TOTAL 0.5 mg/dL (0.2-1.0); CHOL/HDL RATIO 3.8; CHOLESTEROL, TOTAL 122 mg/dL (140-239); CREATININE 1.46 mg/dL (0.7-1.3); HDL CHOL % 26 % (26-37); HDL CHOLESTEROL (DIRECT) 32 mg/dL (40-60); LDL CHOLESTEROL,CALCULATED 72 mg/dL (54-169); LDL/HDL RATIO 2.3 (0.5-3.0); TOTAL PROTEIN 7.6 g/dL (6.4-8.2); TRIGLYCERIDES 88 mg/dL (50-200); VLDL CHOLESTEROL 18 mg/dL (0-25)
[2018-06-14 04:43] LABS: BASOPHILS # (AUTO) 0.01 x10^3/uL (0-0.1); BASOPHILS % (AUTO) 0 % (0-1); EOSINOPHILS # (AUTO) 0.37 x10^3/uL (0-0.4); EOSINOPHILS % (AUTO) 3 % (1-7); LYMPHOCYTES # (AUTO) 1.44 x10^3/uL (1-3.4); LYMPHOCYTES % (AUTO) 11 % (22-44); MD NO; MEAN CORPUSCULAR HEMOGLOBIN 26.3 pg (27.5-34.5); MEAN CORPUSCULAR HGB CONC 31.9 g/dL (33.2-36.2); MEAN CORPUSCULAR VOLUME 82.4 fL (81-97); MEAN PLATELET VOLUME 9.6 fL (7.4-10.4); MONOCYTES # (AUTO) 1.03 x10^3/uL (0.2-0.8); MONOCYTES % (AUTO) 8 % (2-9); NEUTROPHILS # (AUTO) 10.91 x10^3/uL (1.8-6.8); NEUTROPHILS % (AUTO) 79 % (42-75); PLATELET COUNT 207 x10^3/uL (130-400); RED BLOOD COUNT 4.98 x10^6/uL (4.38-5.82); RED CELL DISTRIBUTION WIDTH 18.8 % (9.4-14.8)
[2018-06-14] MEDS: CEFTRIAXONE PMX 1GM/50ML 50 ML IV SCH (05:08)
[2018-06-14] MEDS: FLUTICASONE/VILANTEROL 200-25MCG/INH INH SCH (08:14)
[2018-06-14] MEDS: MULTIVITAMIN 1 TABLET PO SCH (08:15)
[2018-06-14] MEDS: FUROSEMIDE 20 MG/2 ML IV SCH ×2 (08:15→21:39)
[2018-06-14] MEDS: DOXYCYCLINE 100 MG in DEXTROSE 5% 250 ML IV SCH ×2 (11:00→21:39)
[2018-06-14] MEDS: QUETIAPINE 25MG TABLET PO SCH ×2 (12:35→19:25)
[2018-06-14 16:30] VITALS: BP 115/80
[2018-06-14] MEDS: morphine SULFATE 10 MG/ML, 1ML IVPush PRN (22:41)
[2018-06-15] MEDS: HEPARIN 5,000 UNITS/ML, 1ML SQ SCH ×3 (03:25→19:57)
[2018-06-15 04:14] VITALS: BP 110/64
[2018-06-15 04:31] LABS: BASOPHILS # (AUTO) 0.03 x10^3/uL (0-0.1); BASOPHILS % (AUTO) 0 % (0-1); EOSINOPHILS # (AUTO) 0.42 x10^3/uL (0-0.4); EOSINOPHILS % (AUTO) 4 % (1-7); LYMPHOCYTES # (AUTO) 1.36 x10^3/uL (1-3.4); LYMPHOCYTES % (AUTO) 12 % (22-44); MD NO; MEAN CORPUSCULAR HGB CONC 31.5 g/dL (33.2-36.2); MEAN CORPUSCULAR VOLUME 82.5 fL (81-97); MEAN PLATELET VOLUME 9.6 fL (7.4-10.4); MONOCYTES % (AUTO) 10 % (2-9); NEUTROPHILS # (AUTO) 8.42 x10^3/uL (1.8-6.8); NEUTROPHILS % (AUTO) 74 % (42-75); PLATELET COUNT 218 x10^3/uL (130-400); RED BLOOD COUNT 4.87 x10^6/uL (4.38-5.82); RED CELL DISTRIBUTION WIDTH 18.8 % (9.4-14.8)
[2018-06-15 04:41] LABS: ALANINE AMINOTRANSFERASE 13 U/L (12-78); ALBUMIN 2.7 g/dL (3.4-5.0); ANION GAP 7 mmol/L (5-15); CALCIUM 8.6 mg/dL (8.5-10.1); CHLORIDE 96 mmol/L (98-107); CREATININE 1.06 mg/dL (0.7-1.3)
[2018-06-15 04:44] LABS: ALKALINE PHOSPHATASE 77 U/L (45-117); BILIRUBIN,TOTAL 0.6 mg/dL (0.2-1.0); TOTAL PROTEIN 7.4 g/dL (6.4-8.2)
[2018-06-15] MEDS: CEFTRIAXONE PMX 1GM/50ML 50 ML IV SCH (04:54)
[2018-06-15] MEDS: FLUTICASONE/VILANTEROL 200-25MCG/INH INH SCH (09:00)
[2018-06-15] MEDS: QUETIAPINE 25MG TABLET PO SCH ×3 (09:40→23:38)
[2018-06-15] MEDS: MULTIVITAMIN 1 TABLET PO SCH (09:40)
[2018-06-15] MEDS: DOXYCYCLINE 100 MG in DEXTROSE 5% 250 ML IV SCH ×2 (09:41→21:36)
[2018-06-15] MEDS: FUROSEMIDE 20 MG/2 ML IV SCH ×2 (09:41→21:36)
[2018-06-15] MEDS: ACETAMINOPHEN 325 MG TABLET PO PRN ×2 (14:43→22:26)
[2018-06-16] MEDS: LORazepam 0.5MG TABLET PO PRN ×2 (02:30→23:10)
[2018-06-16] MEDS: HEPARIN 5,000 UNITS/ML, 1ML SQ SCH (03:05)
[2018-06-16 04:29] LABS: BASOPHILS # (AUTO) 0.07 x10^3/uL (0-0.1); BASOPHILS % (AUTO) 1 % (0-1); EOSINOPHILS # (AUTO) 0.53 x10^3/uL (0-0.4); EOSINOPHILS % (AUTO) 5 % (1-7); LYMPHOCYTES # (AUTO) 1.26 x10^3/uL (1-3.4); LYMPHOCYTES % (AUTO) 11 % (22-44); MD NO; MEAN CORPUSCULAR HEMOGLOBIN 25.8 pg (27.5-34.5); MEAN CORPUSCULAR HGB CONC 31.6 g/dL (33.2-36.2); MEAN CORPUSCULAR VOLUME 81.5 fL (81-97); MEAN PLATELET VOLUME 9.6 fL (7.4-10.4); MONOCYTES % (AUTO) 8 % (2-9); NEUTROPHILS # (AUTO) 8.53 x10^3/uL (1.8-6.8); NEUTROPHILS % (AUTO) 76 % (42-75); PLATELET COUNT 239 x10^3/uL (130-400); RED BLOOD COUNT 5.01 x10^6/uL (4.38-5.82); RED CELL DISTRIBUTION WIDTH 19.2 % (9.4-14.8)
[2018-06-16 04:36] LABS: ANION GAP 4 mmol/L (5-15); CALCIUM 8.7 mg/dL (8.5-10.1); CHLORIDE 96 mmol/L (98-107)
[2018-06-16 04:40] LABS: ALANINE AMINOTRANSFERASE 14 U/L (12-78); ALKALINE PHOSPHATASE 79 U/L (45-117); BILIRUBIN,TOTAL 0.4 mg/dL (0.2-1.0); CREATININE 0.99 mg/dL (0.7-1.3)
[2018-06-16] MEDS: CEFTRIAXONE PMX 1GM/50ML 50 ML IV SCH (05:00)
[2018-06-16] MEDS: FLUTICASONE/VILANTEROL 200-25MCG/INH INH SCH (08:57)
[2018-06-16] MEDS: FUROSEMIDE 20 MG/2 ML IV SCH ×2 (08:57→20:59)
[2018-06-16] MEDS: QUETIAPINE 25MG TABLET PO SCH ×3 (08:57→23:10)
[2018-06-16] MEDS: DOXYCYCLINE 100 MG in DEXTROSE 5% 250 ML IV SCH ×2 (08:57→21:30)
[2018-06-16] MEDS: MULTIVITAMIN 1 TABLET PO SCH (08:58)
[2018-06-16] MEDS: methylPREDNISolone SOD SUCC 125 MG/2 ML IVPush SCH ×2 (11:00→19:41)
[2018-06-16] MEDS: ENOXAPARIN 40 MG/0.4 ML SQ SCH (12:00)
[2018-06-17] MEDS: methylPREDNISolone SOD SUCC 125 MG/2 ML IVPush SCH ×4 (01:35→20:25)
[2018-06-17 04:24] LABS: BASOPHILS # (AUTO) 0.03 x10^3/uL (0-0.1); BASOPHILS % (AUTO) 0 % (0-1); EOSINOPHILS % (AUTO) 0 % (1-7); LYMPHOCYTES # (AUTO) 0.59 x10^3/uL (1-3.4); LYMPHOCYTES % (AUTO) 6 % (22-44); MD NO; MEAN CORPUSCULAR HEMOGLOBIN 26.2 pg (27.5-34.5); MEAN CORPUSCULAR HGB CONC 31.8 g/dL (33.2-36.2); MEAN CORPUSCULAR VOLUME 82.2 fL (81-97); MEAN PLATELET VOLUME 9.2 fL (7.4-10.4); MONOCYTES # (AUTO) 0.04 x10^3/uL (0.2-0.8); MONOCYTES % (AUTO) 0 % (2-9); NEUTROPHILS # (AUTO) 9.38 x10^3/uL (1.8-6.8); NEUTROPHILS % (AUTO) 93 % (42-75); PLATELET COUNT 248 x10^3/uL (130-400); RED BLOOD COUNT 5.16 x10^6/uL (4.38-5.82); RED CELL DISTRIBUTION WIDTH 18.8 % (9.4-14.8)
[2018-06-17 04:37] LABS: ANION GAP 6 mmol/L (5-15); CALCIUM 9.1 mg/dL (8.5-10.1); CHLORIDE 94 mmol/L (98-107)
[2018-06-17 04:41] LABS: ALANINE AMINOTRANSFERASE 17 U/L (12-78); ALKALINE PHOSPHATASE 78 U/L (45-117); BILIRUBIN,TOTAL 0.3 mg/dL (0.2-1.0); CREATININE 1.04 mg/dL (0.7-1.3); TOTAL PROTEIN 8.1 g/dL (6.4-8.2)
[2018-06-17] MEDS: CEFTRIAXONE PMX 1GM/50ML 50 ML IV SCH (05:23)
[2018-06-17] MEDS: FLUTICASONE/VILANTEROL 200-25MCG/INH INH SCH (09:27)
[2018-06-17] MEDS: MULTIVITAMIN 1 TABLET PO SCH (09:27)
[2018-06-17] MEDS: FUROSEMIDE 20 MG/2 ML IV SCH ×2 (09:27→20:24)
[2018-06-17] MEDS: QUETIAPINE 25MG TABLET PO SCH ×3 (09:27→23:20)
[2018-06-17] MEDS: DOXYCYCLINE 100 MG in DEXTROSE 5% 250 ML IV SCH (09:28)
[2018-06-17] MEDS: ENOXAPARIN 40 MG/0.4 ML SQ SCH (12:36)
[2018-06-17] MEDS: AMPICILLIN/SULBACTAM 3 GM in SODIUM CHLORIDE 0.9% 100 ML IV SCH ×2 (15:34→23:27)
[2018-06-17] MEDS: ACETAMINOPHEN 325 MG TABLET PO PRN (17:16)
[2018-06-17 19:10] VITALS: BP 118/69
[2018-06-17] MEDS: LORazepam 0.5MG TABLET PO PRN (20:24)
[2018-06-18 01:00] VITALS: BP 110/62
[2018-06-18] MEDS: methylPREDNISolone SOD SUCC 125 MG/2 ML IVPush SCH (02:53)
[2018-06-18 05:11] LABS: ANION GAP 8 mmol/L (5-15); CHLORIDE 98 mmol/L (98-107)
[2018-06-18 05:13] LABS: CREATININE 0.94 mg/dL (0.7-1.3)
[2018-06-18] MEDS: AMPICILLIN/SULBACTAM 3 GM in SODIUM CHLORIDE 0.9% 100 ML IV SCH ×4 (05:58→23:11)
[2018-06-18] MEDS: methylPREDNISolone SOD SUCC 40 MG/ML IVPush SCH ×2 (09:48→21:30)
[2018-06-18] MEDS: FUROSEMIDE 20 MG/2 ML IV SCH ×2 (09:48→21:30)
[2018-06-18 10:12] VITALS: BP 116/80
[2018-06-18] MEDS: MULTIVITAMIN 1 TABLET PO SCH (10:39)
[2018-06-18] MEDS: FLUTICASONE/VILANTEROL 200-25MCG/INH INH SCH (11:53)
[2018-06-18] MEDS: ACETAMINOPHEN 325 MG TABLET PO PRN (11:57)
[2018-06-18] MEDS: ENOXAPARIN 40 MG/0.4 ML SQ SCH (11:57)
[2018-06-18 13:13] VITALS: BP 128/84
[2018-06-18 19:46] VITALS: BP 134/91
[2018-06-18] MEDS: LORazepam 0.5MG TABLET PO PRN (21:30)
[2018-06-19 00:02] VITALS: BP 126/84
[2018-06-19] MEDS: AMPICILLIN/SULBACTAM 3 GM in SODIUM CHLORIDE 0.9% 100 ML IV SCH ×4 (05:27→23:30)
[2018-06-19 09:10] VITALS: BP 135/89
[2018-06-19] MEDS: FUROSEMIDE 20 MG/2 ML IV SCH ×2 (09:17→20:25)
[2018-06-19] MEDS: methylPREDNISolone SOD SUCC 40 MG/ML IVPush SCH ×2 (09:17→20:25)
[2018-06-19] MEDS: MULTIVITAMIN 1 TABLET PO SCH (09:17)
[2018-06-19] MEDS: ENOXAPARIN 40 MG/0.4 ML SQ SCH (11:33)
[2018-06-19] MEDS: FLUTICASONE/VILANTEROL 200-25MCG/INH INH SCH (11:33)
[2018-06-19 12:30] VITALS: BP 128/87
[2018-06-19 19:24] VITALS: BP 143/92
[2018-06-19] MEDS: LORazepam 0.5MG TABLET PO PRN (20:25)
[2018-06-20 01:21] VITALS: BP 146/97
[2018-06-20] MEDS: AMPICILLIN/SULBACTAM 3 GM in SODIUM CHLORIDE 0.9% 100 ML IV SCH ×4 (05:30→23:21)
[2018-06-20 06:05] LABS: ANION GAP 6 mmol/L (5-15); CALCIUM 9.1 mg/dL (8.5-10.1); CHLORIDE 100 mmol/L (98-107); CREATININE 1.01 mg/dL (0.7-1.3)
[2018-06-20 07:41] VITALS: BP 133/78
[2018-06-20] MEDS: MULTIVITAMIN 1 TABLET PO SCH (10:00)
[2018-06-20] MEDS: FLUTICASONE/VILANTEROL 200-25MCG/INH INH SCH (10:06)
[2018-06-20] MEDS: FUROSEMIDE 20 MG/2 ML IV SCH ×2 (10:07→23:21)
[2018-06-20] MEDS: methylPREDNISolone SOD SUCC 40 MG/ML IVPush SCH (10:08)
[2018-06-20] MEDS: ENOXAPARIN 40 MG/0.4 ML SQ SCH (11:34)
[2018-06-20 13:23] VITALS: BP 135/89
[2018-06-20] MEDS: ACETAMINOPHEN 325 MG TABLET PO PRN ×2 (14:22→23:21)
[2018-06-20 20:33] VITALS: BP 148/85
[2018-06-20] MEDS: LORazepam 0.5MG TABLET PO PRN (22:01)
[2018-06-20] MEDS: morphine SULFATE 10 MG/ML, 1ML IVPush PRN (22:01)
[2018-06-21] MEDS ORDERED: LORazepam 2 MG/ML, 1ML IVPush ONE
[2018-06-21] MEDS ORDERED: LORazepam 2 MG/ML, 1ML ONE (00:04)
[2018-06-21 00:24] VITALS: BP 133/88
[2018-06-21] MEDS: AMPICILLIN/SULBACTAM 3 GM in SODIUM CHLORIDE 0.9% 100 ML IV SCH ×2 (05:24→12:03)
[2018-06-21] MEDS: FLUTICASONE/VILANTEROL 200-25MCG/INH INH SCH (10:16)
[2018-06-21] MEDS: MULTIVITAMIN 1 TABLET PO SCH (10:16)
[2018-06-21] MEDS: FUROSEMIDE 20 MG/2 ML IV SCH (10:16)
[2018-06-21 11:03] VITALS: BP 126/86
[2018-06-21] MEDS: ENOXAPARIN 40 MG/0.4 ML SQ SCH (12:03)
[2018-06-21 12:08] VITALS: BP 123/83
[2018-06-21] MEDS ORDERED: FURO40TA6 PO (12:25)
[2018-06-21] MEDS ORDERED: FLUT1BLS INH (12:25)
[2018-06-21] MEDS ORDERED: AMOX1TAB61 PO (12:25)
[2018-06-21] MEDS ORDERED: PRED10TA PO (12:25)
== END 2018-06-21 16:52 | disposition home health service (06) | DRG 871 ==
LOC: ED 23:59 → EDIP 06-13 01:48 → CCU 06-13 04:27 → 3NW 06-17 18:03
PROVIDERS: ADMIT Internal Medicine; ATTEND Internal Medicine
PROC: 5A09357 Assistance with Respiratory Ventilation, Less than 24 Consecutive Hours, Continuous Positive Airway Pressure (ICD-10-PCS; principal; 2018-06-12)
DX: A41.9 Sepsis, unspecified organism (principal); J69.0 Pneumonitis due to inhalation of food and vomit; N17.0 Acute kidney failure with tubular necrosis; I50.33 Acute on chronic diastolic (congestive) heart failure; J96.21 Acute and chronic respiratory failure with hypoxia; R57.9 Shock, unspecified; E87.2 Acidosis; E44.0 Moderate protein-calorie malnutrition; I69.354 Hemiplegia and hemiparesis following cerebral infarction affecting left non-dominant side; R65.11 Systemic inflammatory response syndrome (SIRS) of non-infectious origin with acute organ dysfunction; Z66 Do not resuscitate; H91.90 Unspecified hearing loss, unspecified ear; H54.61 Unqualified visual loss, right eye, normal vision left eye; I11.0 Hypertensive heart disease with heart failure; J43.9 Emphysema, unspecified; Z68.29 Body mass index [BMI] 29.0-29.9, adult; Z85.068 Personal history of other malignant neoplasm of small intestine; Q85.00 Neurofibromatosis, unspecified; Z98.2 Presence of cerebrospinal fluid drainage device; Z80.0 Family history of malignant neoplasm of digestive organs; Z87.891 Personal history of nicotine dependence; Z92.3 Personal history of irradiation; Z88.8 Allergy status to other drugs, medicaments and biological substances; Z82.49 Family history of ischemic heart disease and other diseases of the circulatory system
CPT/HCPCS: 36415; 71045; 71250; 80048; 80053; 80061; 81003; 83036; 83605; 83735; 83880; 84100; 84145; 84439; 84443; 84484; 85025; 87040; 87081; 93005; 93306; 93970; 94660; 96365; G0378; J0295; J0696; J1644; J1650; J1940; J2543; J7060; J2060; J2270; J2920; J2930; J7512

== ENCOUNTER 2018-07-09 12:19 | Inpatient (IN) | payer MEDICARE ==
[~2018-07-09] VITALS: Ht 175.3 cm; Wt 91.4 kg
[~2018-07-09 12:19] MED LIST changes: +AMOX1TAB61 PO; +FURO40TA6 PO; +LORA-446 PO; +PRED10TA PO
[2018-07-09] MEDS ORDERED: SODIUM CHLORIDE FLUSH 10ML SYR IVF ONE (13:00)
[2018-07-09 13:41] LABS: MEAN CORPUSCULAR HEMOGLOBIN 26.5 pg (27.5-34.5); MEAN PLATELET VOLUME 10.2 fL (7.4-10.4); PLATELET COUNT 178 x10^3/uL (130-400); RED BLOOD COUNT 5.55 x10^6/uL (4.38-5.82)
[2018-07-09 13:50] LABS: ALANINE AMINOTRANSFERASE 20 U/L (12-78); ALBUMIN 3.2 g/dL (3.4-5.0); ANION GAP 10 mmol/L (5-15); CALCIUM 8.5 mg/dL (8.5-10.1); CHLORIDE 99 mmol/L (98-107); CREATININE 1.06 mg/dL (0.7-1.3)
[2018-07-09 13:54] LABS: ALKALINE PHOSPHATASE 80 U/L (45-117); BILIRUBIN,TOTAL 0.4 mg/dL (0.2-1.0); TOTAL PROTEIN 7.2 g/dL (6.4-8.2); TROPONIN I < 0.015 ng/mL (0.000-0.045)
[2018-07-09 14:13] LABS: BASOPHILS # (AUTO) 0.01 x10^3/uL (0-0.1); BASOPHILS % (AUTO) 0 % (0-1); EOSINOPHILS # (AUTO) 0.08 x10^3/uL (0-0.4); EOSINOPHILS % (AUTO) 0 % (1-7); LYMPHOCYTES # (AUTO) 0.62 x10^3/uL (1-3.4); LYMPHOCYTES % (AUTO) 4 % (22-44); MD SCAN; MONOCYTES # (AUTO) 0.09 x10^3/uL (0.2-0.8); MONOCYTES % (AUTO) 1 % (2-9); NEUTROPHILS # (AUTO) 16.92 x10^3/uL (1.8-6.8); NEUTROPHILS % (AUTO) 96 % (42-75)
[2018-07-09] MEDS ORDERED: methylPREDNISolone SOD SUCC 125 MG/2 ML IVP ONE (14:30)
[2018-07-09] MEDS ORDERED: ALBUTEROL SULFATE 2.5 MG/3 ML NPPB ONE (14:30)
[2018-07-09] MEDS ORDERED: methylPREDNISolone SOD SUCC 125 MG/2 ML ONE (14:35)
[2018-07-09 14:41] LABS: INTERNATIONAL NORMALIZED RATIO 1.01 (0.93-1.1); PROTHROMBIN TIME 10.5 Seconds (9.6-11.5)
[2018-07-09] MEDS ORDERED: ALBUTEROL SULFATE 2.5 MG/3 ML ONE (14:55)
[2018-07-09] MEDS ORDERED: ENALAPRILAT 1.25 MG/ML, 2ML IVPush PRN (16:30)
[2018-07-09] MEDS ORDERED: ONDANSETRON 2MG/ML, 2ML IVPush PRN (16:30)
[2018-07-09 16:36] VITALS: BP 130/90
[2018-07-09 16:39] VITALS: BP 130/90
[2018-07-09 17:03] LABS: MEAN CORPUSCULAR HEMOGLOBIN 26.1 pg (27.5-34.5); MEAN CORPUSCULAR HGB CONC 31.8 g/dL (33.2-36.2); MEAN CORPUSCULAR VOLUME 82.1 fL (81-97); MEAN PLATELET VOLUME 9.6 fL (7.4-10.4); PLATELET COUNT 181 x10^3/uL (130-400); RED BLOOD COUNT 5.83 x10^6/uL (4.38-5.82); RED CELL DISTRIBUTION WIDTH 21.3 % (9.4-14.8)
[2018-07-09 17:22] LABS: BASOPHILS # (AUTO) 0.09 x10^3/uL (0-0.1); BASOPHILS % (AUTO) 1 % (0-1); EOSINOPHILS # (AUTO) 0.01 x10^3/uL (0-0.4); EOSINOPHILS % (AUTO) 0 % (1-7); LYMPHOCYTES # (AUTO) 0.58 x10^3/uL (1-3.4); LYMPHOCYTES % (AUTO) 4 % (22-44); MD SCAN; MONOCYTES # (AUTO) 0.08 x10^3/uL (0.2-0.8); MONOCYTES % (AUTO) 1 % (2-9); NEUTROPHILS # (AUTO) 15.24 x10^3/uL (1.8-6.8); NEUTROPHILS % (AUTO) 95 % (42-75)
[2018-07-09] MEDS: ACETAMINOPHEN 325 MG TABLET PO PRN ×2 (18:00→23:58)
[2018-07-09 19:04] VITALS: BP 122/89
[2018-07-09] MEDS: methylPREDNISolone SOD SUCC 125 MG/2 ML IVPush SCH (20:52)
[2018-07-09] MEDS: LORazepam 1MG TABLET PO SCH (20:53)
[2018-07-09] MEDS: PIPERACILLIN/TAZO/PMX 3.375GM 50 ML IV SCH (21:14)
[2018-07-09 21:29] VITALS: BP 124/77
[2018-07-09] MEDS ORDERED: ALBUTEROL SULFATE 2.5 MG/3 ML NPPB PRN (21:30)
[2018-07-10 01:06] VITALS: BP 121/74
[2018-07-10] MEDS: PIPERACILLIN/TAZO/PMX 3.375GM 50 ML IV SCH ×4 (03:00→21:09)
[2018-07-10] MEDS: methylPREDNISolone SOD SUCC 125 MG/2 ML IVPush SCH ×4 (03:01→21:09)
[2018-07-10 04:56] LABS: ALANINE AMINOTRANSFERASE 21 U/L (12-78); ALBUMIN 3.1 g/dL (3.4-5.0); ANION GAP 9 mmol/L (5-15); CALCIUM 8.9 mg/dL (8.5-10.1); CHLORIDE 98 mmol/L (98-107); CREATININE 0.93 mg/dL (0.7-1.3)
[2018-07-10 04:58] LABS: ALKALINE PHOSPHATASE 67 U/L (45-117); BILIRUBIN,TOTAL 0.5 mg/dL (0.2-1.0); TOTAL PROTEIN 6.8 g/dL (6.4-8.2)
[2018-07-10 07:16] VITALS: BP 124/77
[2018-07-10] MEDS: POTASSIUM CHLORIDE 10 MEQ TABLET.ER PO SCH (08:51)
[2018-07-10] MEDS: FUROSEMIDE 40 MG TABLET PO SCH (08:51)
[2018-07-10] MEDS: HYDROcodone/APAP 5/325 TABLET PO PRN ×2 (08:54→20:29)
[2018-07-10 11:51] LABS: CULTURE INDICATED? NO; MICROSCOPIC NOT IND
[2018-07-10 13:03] VITALS: BP 121/71
[2018-07-10 20:00] VITALS: BP 134/83
[2018-07-10] MEDS: LORazepam 1MG TABLET PO SCH (20:29)
[2018-07-10] MEDS: morphine SULFATE 10 MG/ML, 1ML IVPush PRN (22:31)
[2018-07-11 00:32] VITALS: BP 127/82
[2018-07-11] MEDS: PIPERACILLIN/TAZO/PMX 3.375GM 50 ML IV SCH ×4 (03:09→21:04)
[2018-07-11] MEDS: methylPREDNISolone SOD SUCC 125 MG/2 ML IVPush SCH ×4 (03:10→21:05)
[2018-07-11 08:48] VITALS: BP 133/90
[2018-07-11] MEDS: POTASSIUM CHLORIDE 10 MEQ TABLET.ER PO SCH (09:05)
[2018-07-11] MEDS: FUROSEMIDE 40 MG TABLET PO SCH (09:06)
[2018-07-11 15:19] VITALS: BP 112/74
[2018-07-11 19:34] VITALS: BP 122/75
[2018-07-11] MEDS ORDERED: ZIPRASIDONE 20 MG INJ IM ONE ×2 (20:43→21:00)
[2018-07-11] MEDS: LORazepam 1MG TABLET PO SCH (21:01)
[2018-07-11] MEDS: HYDROcodone/APAP 5/325 TABLET PO PRN (21:01)
[2018-07-11] MEDS: morphine SULFATE 10 MG/ML, 1ML IVPush PRN (23:20)
[2018-07-12] MEDS: HYDROcodone/APAP 5/325 TABLET PO PRN ×2 (01:57→20:49)
[2018-07-12] MEDS: methylPREDNISolone SOD SUCC 125 MG/2 ML IVPush SCH ×4 (03:18→20:42)
[2018-07-12] MEDS: PIPERACILLIN/TAZO/PMX 3.375GM 50 ML IV SCH ×4 (03:18→22:11)
[2018-07-12 04:30] VITALS: BP 129/95
[2018-07-12 04:35] VITALS: BP 129/95
[2018-07-12] MEDS: POTASSIUM CHLORIDE 10 MEQ TABLET.ER PO SCH (08:55)
[2018-07-12] MEDS: FUROSEMIDE 40 MG TABLET PO SCH (09:00)
[2018-07-12 10:41] VITALS: BP 136/93
[2018-07-12 12:07] VITALS: BP 129/82
[2018-07-12] MEDS: LORazepam 2 MG/ML, 1ML IVPush PRN (12:20)
[2018-07-12 18:34] VITALS: BP 148/77
[2018-07-12] MEDS: LORazepam 1MG TABLET PO SCH (20:42)
[2018-07-13 00:10] VITALS: BP 137/81
[2018-07-13] MEDS: HYDROcodone/APAP 5/325 TABLET PO PRN (01:01)
[2018-07-13] MEDS: PIPERACILLIN/TAZO/PMX 3.375GM 50 ML IV SCH ×4 (03:35→21:11)
[2018-07-13] MEDS: methylPREDNISolone SOD SUCC 125 MG/2 ML IVPush SCH ×4 (03:35→21:11)
[2018-07-13 07:45] VITALS: BP 150/92
[2018-07-13] MEDS: POTASSIUM CHLORIDE 10 MEQ TABLET.ER PO SCH (09:57)
[2018-07-13] MEDS: FUROSEMIDE 40 MG TABLET PO SCH (09:59)
[2018-07-13 10:04] VITALS: BP 138/97
[2018-07-13 12:19] LABS: MEAN CORPUSCULAR HEMOGLOBIN 26.4 pg (27.5-34.5); MEAN CORPUSCULAR HGB CONC 31.9 g/dL (33.2-36.2); MEAN CORPUSCULAR VOLUME 82.7 fL (81-97); MEAN PLATELET VOLUME 9.9 fL (7.4-10.4); PLATELET COUNT 194 x10^3/uL (130-400); RED BLOOD COUNT 5.27 x10^6/uL (4.38-5.82); RED CELL DISTRIBUTION WIDTH 22.4 % (9.4-14.8)
[2018-07-13 12:27] LABS: ALBUMIN 3.1 g/dL (3.4-5.0); ANION GAP 8 mmol/L (5-15); CALCIUM 8.4 mg/dL (8.5-10.1); CHLORIDE 99 mmol/L (98-107)
[2018-07-13 12:28] LABS: BASOPHILS % (AUTO) 0 % (0-1); EOSINOPHILS % (AUTO) 0 % (1-7); LYMPHOCYTES # (AUTO) 0.36 x10^3/uL (1-3.4); LYMPHOCYTES % (AUTO) 3 % (22-44); MD SCAN; MONOCYTES # (AUTO) 0.43 x10^3/uL (0.2-0.8); MONOCYTES % (AUTO) 4 % (2-9); NEUTROPHILS # (AUTO) 10.53 x10^3/uL (1.8-6.8); NEUTROPHILS % (AUTO) 93 % (42-75)
[2018-07-13 12:31] LABS: ALANINE AMINOTRANSFERASE 78 U/L (12-78); ALKALINE PHOSPHATASE 54 U/L (45-117); BILIRUBIN,TOTAL 0.8 mg/dL (0.2-1.0); CREATININE 0.99 mg/dL (0.7-1.3); TOTAL PROTEIN 6.4 g/dL (6.4-8.2)
[2018-07-13 14:00] VITALS: BP 148/86
[2018-07-13] MEDS: ENOXAPARIN 40 MG/0.4 ML SQ SCH (15:35)
[2018-07-13 19:44] VITALS: BP 136/72
[2018-07-13 20:57] LABS: CLOSTRIDIUM DIFFICILE ANTIGEN NEGATIVE; CLOSTRIDIUM DIFFICILE TOXIN NEGATIVE (Negative)
[2018-07-13] MEDS: LORazepam 1MG TABLET PO SCH (21:11)
[2018-07-14 00:33] VITALS: BP 142/78
[2018-07-14] MEDS: PIPERACILLIN/TAZO/PMX 3.375GM 50 ML IV SCH ×4 (04:17→23:11)
[2018-07-14] MEDS: methylPREDNISolone SOD SUCC 125 MG/2 ML IVPush SCH (04:17)
[2018-07-14 04:57] LABS: MEAN CORPUSCULAR HEMOGLOBIN 26.4 pg (27.5-34.5); MEAN CORPUSCULAR VOLUME 82.6 fL (81-97); MEAN PLATELET VOLUME 10.2 fL (7.4-10.4); PLATELET COUNT 181 x10^3/uL (130-400); RED CELL DISTRIBUTION WIDTH 22.8 % (9.4-14.8)
[2018-07-14 05:24] LABS: BASOPHILS % (AUTO) 0 % (0-1); EOSINOPHILS % (AUTO) 0 % (1-7); LYMPHOCYTES # (AUTO) 0.41 x10^3/uL (1-3.4); LYMPHOCYTES % (AUTO) 5 % (22-44); MD SCAN; MONOCYTES # (AUTO) 0.27 x10^3/uL (0.2-0.8); MONOCYTES % (AUTO) 3 % (2-9); NEUTROPHILS # (AUTO) 8.16 x10^3/uL (1.8-6.8); NEUTROPHILS % (AUTO) 92 % (42-75)
[2018-07-14 07:00] VITALS: BP 152/86
[2018-07-14] MEDS: methylPREDNISolone SOD SUCC 40 MG/ML IVPush SCH ×2 (11:03→23:11)
[2018-07-14] MEDS: POTASSIUM CHLORIDE 10 MEQ TABLET.ER PO SCH (11:04)
[2018-07-14] MEDS: FUROSEMIDE 40 MG TABLET PO SCH (11:05)
[2018-07-14 14:00] VITALS: BP 157/86
[2018-07-14] MEDS: ENOXAPARIN 40 MG/0.4 ML SQ SCH (16:30)
[2018-07-14] MEDS: POTASSIUM CHLORIDE 10% 20 MEQ/15 ML UDC PO SCH (16:30)
[2018-07-14] MEDS ORDERED: methylPREDNISolone SOD SUCC 40 MG/ML IVPush SCH (21:00)
[2018-07-14 21:01] VITALS: BP 129/80
[2018-07-14] MEDS: LORazepam 1MG TABLET PO SCH (23:11)
[2018-07-14] MEDS: TEMAZEPAM 15 MG CAPSULE PO PRN (23:11)
[2018-07-15 02:10] VITALS: BP 135/82
[2018-07-15] MEDS: PIPERACILLIN/TAZO/PMX 3.375GM 50 ML IV SCH ×4 (05:01→22:43)
[2018-07-15] MEDS: POTASSIUM CHLORIDE 10% 20 MEQ/15 ML UDC PO SCH (08:00)
[2018-07-15] MEDS ORDERED: POTASSIUM CHLORIDE 10% 40 MEQ/30 ML UDC ONE (09:55)
[2018-07-15 10:15] VITALS: BP 122/90
[2018-07-15] MEDS: FUROSEMIDE 40 MG TABLET PO SCH (10:25)
[2018-07-15] MEDS: methylPREDNISolone SOD SUCC 40 MG/ML IVPush SCH ×2 (10:31→22:43)
[2018-07-15] MEDS ORDERED: FUROSEMIDE 20 MG/2 ML IV ONE (13:30)
[2018-07-15 14:00] VITALS: BP 126/78
[2018-07-15] MEDS: ENOXAPARIN 40 MG/0.4 ML SQ SCH (14:19)
[2018-07-15 19:50] VITALS: BP 116/76
[2018-07-15] MEDS: ACETAMINOPHEN 325 MG TABLET PO PRN (20:03)
[2018-07-15] MEDS: LORazepam 1MG TABLET PO SCH (20:03)
[2018-07-15] MEDS: TEMAZEPAM 15 MG CAPSULE PO PRN (22:43)
[2018-07-16 01:06] VITALS: BP 110/76
[2018-07-16] MEDS: PIPERACILLIN/TAZO/PMX 3.375GM 50 ML IV SCH ×4 (04:15→22:19)
[2018-07-16] MEDS: ACETAMINOPHEN 325 MG TABLET PO PRN ×3 (04:15→20:36)
[2018-07-16 04:39] LABS: MEAN CORPUSCULAR HEMOGLOBIN 26.3 pg (27.5-34.5); MEAN CORPUSCULAR HGB CONC 31.8 g/dL (33.2-36.2); MEAN CORPUSCULAR VOLUME 82.7 fL (81-97); RED BLOOD COUNT 5.49 x10^6/uL (4.38-5.82); RED CELL DISTRIBUTION WIDTH 22.3 % (9.4-14.8)
[2018-07-16 05:00] LABS: ANION GAP 7 mmol/L (5-15); CALCIUM 8.4 mg/dL (8.5-10.1); CHLORIDE 98 mmol/L (98-107)
[2018-07-16 05:01] LABS: CREATININE 1.04 mg/dL (0.7-1.3)
[2018-07-16 06:26] VITALS: BP 124/84
[2018-07-16 07:16] LABS: MEAN PLATELET VOLUME 10.5 fL (7.4-10.4); PLATELET COUNT 193 x10^3/uL (130-400)
[2018-07-16 08:55] LABS: BASOPHILS % (AUTO) 0 % (0-1); EOSINOPHILS % (AUTO) 0 % (1-7); LYMPHOCYTES # (AUTO) 0.45 x10^3/uL (1-3.4); LYMPHOCYTES % (AUTO) 2 % (22-44); MD SCAN; MONOCYTES # (AUTO) 0.39 x10^3/uL (0.2-0.8); MONOCYTES % (AUTO) 2 % (2-9); NEUTROPHILS # (AUTO) 19.74 x10^3/uL (1.8-6.8); NEUTROPHILS % (AUTO) 96 % (42-75)
[2018-07-16] MEDS: POTASSIUM CHLORIDE 10% 20 MEQ/15 ML UDC PO SCH (09:42)
[2018-07-16] MEDS: FUROSEMIDE 40 MG TABLET PO SCH (09:42)
[2018-07-16 12:30] VITALS: BP 141/93
[2018-07-16] MEDS: ENOXAPARIN 40 MG/0.4 ML SQ SCH (14:43)
[2018-07-16 18:02] LABS: MICROSCOPIC NOT IND
[2018-07-16 19:02] VITALS: BP 139/86
[2018-07-16] MEDS: TEMAZEPAM 15 MG CAPSULE PO PRN (20:36)
[2018-07-16] MEDS: LORazepam 1MG TABLET PO SCH (20:36)
[2018-07-17] MEDS: LORazepam 2 MG/ML, 1ML IVPush PRN ×2 (00:30→15:21)
[2018-07-17 01:08] VITALS: BP 132/80
[2018-07-17] MEDS: PIPERACILLIN/TAZO/PMX 3.375GM 50 ML IV SCH ×3 (04:16→16:22)
[2018-07-17 05:18] LABS: MEAN CORPUSCULAR HEMOGLOBIN 26.4 pg (27.5-34.5); MEAN CORPUSCULAR HGB CONC 32.1 g/dL (33.2-36.2); MEAN CORPUSCULAR VOLUME 82.1 fL (81-97); MEAN PLATELET VOLUME 10.1 fL (7.4-10.4); PLATELET COUNT 181 x10^3/uL (130-400); RED BLOOD COUNT 5.85 x10^6/uL (4.38-5.82); RED CELL DISTRIBUTION WIDTH 23.1 % (9.4-14.8)
[2018-07-17 05:57] LABS: BASOPHILS # (AUTO) 0.02 x10^3/uL (0-0.1); BASOPHILS % (AUTO) 0 % (0-1); EOSINOPHILS # (AUTO) 0.09 x10^3/uL (0-0.4); EOSINOPHILS % (AUTO) 1 % (1-7); LYMPHOCYTES # (AUTO) 1.62 x10^3/uL (1-3.4); LYMPHOCYTES % (AUTO) 11 % (22-44); MD SCAN; MONOCYTES % (AUTO) 1 % (2-9); NEUTROPHILS # (AUTO) 13.04 x10^3/uL (1.8-6.8); NEUTROPHILS % (AUTO) 88 % (42-75)
[2018-07-17 06:43] VITALS: BP 133/91
[2018-07-17] MEDS: POTASSIUM CHLORIDE 10% 20 MEQ/15 ML UDC PO SCH (08:00)
[2018-07-17] MEDS ORDERED: POTASSIUM CHLORIDE 10% 40 MEQ/30 ML UDC ONE (10:23)
[2018-07-17] MEDS: FUROSEMIDE 40 MG TABLET PO SCH (10:25)
[2018-07-17] MEDS: ACETAMINOPHEN 325 MG TABLET PO PRN (13:21)
[2018-07-17 14:00] VITALS: BP 118/86
[2018-07-17] MEDS: ENOXAPARIN 40 MG/0.4 ML SQ SCH (14:57)
== END 2018-07-17 18:05 | DRG 871 ==
LOC: ED 15:05 → SUATTDRO 15:25 → ED 15:26 → EDIP 15:28 → 4WST 16:11
PROVIDERS: ADMIT Hospitalist; ATTEND Internal Medicine
DX: A41.9 Sepsis, unspecified organism (principal); J69.0 Pneumonitis due to inhalation of food and vomit; J96.21 Acute and chronic respiratory failure with hypoxia; J44.1 Chronic obstructive pulmonary disease with (acute) exacerbation; I50.32 Chronic diastolic (congestive) heart failure; H54.61 Unqualified visual loss, right eye, normal vision left eye; H91.93 Unspecified hearing loss, bilateral; Z66 Do not resuscitate; I27.20 Pulmonary hypertension, unspecified; Q85.00 Neurofibromatosis, unspecified; Z86.73 Personal history of transient ischemic attack (TIA), and cerebral infarction without residual deficits; Z87.891 Personal history of nicotine dependence; Z92.3 Personal history of irradiation; Z98.2 Presence of cerebrospinal fluid drainage device; Z88.8 Allergy status to other drugs, medicaments and biological substances
CPT/HCPCS: 36415; 36600; 71045; 71250; 80048; 80053; 81003; 82803; 83605; 83735; 83880; 84100; 84145; 84443; 84484; 85025; 85610; 87040; 87324; 93005; 94640; 96374; 99285; G0378; J1650; J2543; J3486; J7613; J1940; J2060; J2270; J2920; J2930; J7512